=== PATIENT | male | born 1980 | race Caucasian/White ===

== ENCOUNTER 2025-09-13 11:23 | Emergency (ER) | payer BC, OTHER ==
[2025-09-13] MEDS ORDERED: Proparacaine 0.5% Opth 15 ML BOT ONE (12:39)
[2025-09-13] MEDS ORDERED: Fluorescein Opthalmic Strip ONE (12:39)
== END 2025-09-13 15:10 | disposition home or self-care (01) ==
LOC: CSHERS 11:23
DX: T15.01XA Foreign body in cornea, right eye, initial encounter (principal); I10 Essential (primary) hypertension; E11.9 Type 2 diabetes mellitus without complications; Z79.84 Long term (current) use of oral hypoglycemic drugs; Z79.899 Other long term (current) drug therapy; W44.8XXA Other foreign body entering into or through a natural orifice, initial encounter
CPT/HCPCS: 90715; 99283